=== PATIENT | female | born 1955 | race Caucasian/White ===

== ENCOUNTER → 2017-05-30 16:40 | Outpatient (CLI) | payer MEDICAID | END | disposition home or self-care (01) | LOC: D.MAMMO 15:45 | DX: Z12.31 Encounter for screening mammogram for malignant neoplasm of breast (principal) ==

== ENCOUNTER → 2017-09-21 09:38 | Outpatient (CLI) | payer MEDICAID | END | disposition home or self-care (01) | LOC: D.MRI 09:38 | DX: R51 Headache (principal) ==

== ENCOUNTER 2019-10-17 16:53 | Outpatient (CLI) | payer MEDICARE | END 2019-10-17 16:54 | LOC: D.MAMMO 16:53 | PROVIDERS: ATTEND Family Medicine | DX: Z12.31 Encounter for screening mammogram for malignant neoplasm of breast (principal) ==